=== PATIENT | female | born 2000 | race Caucasian/White ===

== ENCOUNTER 2023-01-25 21:42 | Emergency (ER) | payer SELFPAY ==
[2023-01-25] MEDS ORDERED: Cefdinir 300 MG Cap PO ONE (23:26)
[2023-01-25] MEDS ORDERED: Ibuprofen 600 MG Tab PO ONE (23:26)
== END 2023-01-25 23:38 | disposition home or self-care (01) ==
LOC: MW.ED 21:42
DX: H66.91 Otitis media, unspecified, right ear (principal); H60.91 Unspecified otitis externa, right ear; Z88.0 Allergy status to penicillin
CPT/HCPCS: 99282; A9270; 99283